=== PATIENT | male | born 1975 | race Two or more races ===

== ENCOUNTER 2025-05-17 09:34 | Emergency (ER) | payer OTHER, SELFPAY ==
[2025-05-17 09:38] VITALS: BP 113/62; PULSE 97; RESP 16; TEMP 36.7; O2SAT 97
[2025-05-17 11:24] VITALS: BMI 33.2
[2025-05-17] MEDS: LIDOCAINE HCL 1% 20 ML VIAL INFL (12:00)
--- NOTE | 2025-05-17 12:01 | PD.EDSKIN ---
ED Skin Abcess FB-RME/HPI General Chief complaint: Skin/Abscess/Foreign Body Stated complaint: cyst behind right ear, taking abx, getting worse Time Seen by Provider: 05/17/25 11:28 Arrival date/time: 05/17/25 09:34 Limitations: no limitations RME / HPI RME / HPI narrative: Patient is a 50-year-old male with a history of hypertension. He states he has reoccurring infections in his right auricle and posterior to the right ear. He states he was started on Bactrim DS last week for this and has 1 last day of on his prescription. He states his erythema, and swelling, has gotten worse. He denies any trauma or injury. He has no fevers or chills. He has no inner ear pain. No sore throat. No history of diabetes. He has no other acute complaints or concerns. Related Data Home Medications ?Medication ?Instructions ?Recorded ?Confirmed pantoprazole 40 mg tablet,delayed 40 mg PO QDAY ##0 01/10/14 release (Protonix) Losartan Potassium * (COZAAR *) 100 mg PO QDAY #0 tabs 09/17/16 baclofen 10 mg tablet 5 mg PO TID #0 tabs 09/17/16 famotidine 20 mg tablet (Pepcid) 20 mg PO HS #0 tabs 09/17/16 hydrochlorothiazide 12.5 mg 12.5 mg PO QAM #0 caps 09/17/16 capsule (Microzide) Previous Rx's ?Medication ?Instructions ?Recorded clindamycin HCl 300 mg capsule 300 mg PO QID #30 caps 05/17/25 Allergies Allergy/AdvReac Type Severity Reaction Status Date / Time Bee Stings Allergy Severe Swelling Uncoded 05/17/25 09:39 GNATS Allergy Severe Swelling Uncoded 05/17/25 09:39 ANTS Allergy Mild swelling, Uncoded 05/17/25 09:39 itching Review of Systems Review of Systems Systems Reviewed: All systems reviewed, normal except as documented ED Exam General Limitations: Present no limitations General appearance: Present alert and in no apparent distress Head Head exam: Present atraumatic Eye Eye exam: Present normal appearance, PERRL and EOMI ENT ENT exam: Present normal oropharynx, mucous membranes moist, TM's normal bilaterally (No ear canal edema or erythema) and other (The right pinna is erythematous and edematous. Just posterior to the ear there is mild fluctuance, and erythema.) Neck Neck exam: Present normal inspection, full ROM and trachea midline Chest Chest inspection: Present normal inspection and symmetric chest wall rise Respiratory Respiratory exam: Present normal lung sounds bilaterally Cardiovascular Cardiovascular exam: Present regular rate, normal rhythm and normal heart sounds Extremities Exam Extremities exam: Present normal inspection and full ROM Back Exam Back exam: Present normal inspection and full ROM Neurological Exam Neurological exam: Present alert and oriented X3 Psychiatric Psychiatric exam: Present normal affect and normal mood Skin Skin exam: Present warm, dry, intact and normal color Course Quality Measures none Orders Category Date Time Status Wound Cult and GS, Anaer Stat Lab 05/17/25 12:01 Ordered Lidocaine 1% 20 ml [Xylocaine 1% 20 ML] Med 05/17/25 11:51 Discontinued 20 ml INFL X1 ONE Vital Signs Vital signs: Vital Signs Temperature 98.1 F 05/17/25 09:38 Pulse Rate 97 05/17/25 09:38 Respiratory Rate 16 05/17/25 09:38 Blood Pressure 113/62 05/17/25 09:38 Pulse Oximetry (%) 97 05/17/25 09:38 Oxygen Delivery Method Room Air 05/17/25 09:38 PROCEDURES: Procedure Comment Verbal consent was obtained. The ear and posterior ear was cleansed with chlorhexidine. 0.25 cc of lidocaine was used to infiltrate the fluctuant area posterior to the ear an 18-gauge needle was then introduced into the area of fluctuance and approximately 0.3 cc of purulent drainage. Cultures were obtained. A dressing was then applied. Procedure was tolerated well without any immediate complication. Skin / Abscess / Foreign Body MDM Narrative MDM Narrative:: Patient is a 50-year-old male with a history of hypertension. He states he has reoccurring infections in his right auricle and posterior to the right ear. He states he was started on Bactrim DS last week for this and has 1 last day of on his prescription. He states his erythema, and swelling, has gotten worse. He denies any trauma or injury. He has no fevers or chills. He has no inner ear pain. No sore throat. No history of diabetes. He has no other acute complaints or concerns. On exam, patient is nontoxic-appearing in no visible signs stress. His right pinna is erythematous and there is mild fluctuance posterior to the ear. Verbal consent was obtained and the ear was aspirated, see procedure note. Cultures were obtained. Patient was placed on clindamycin. He states he also is followed by reverse unit operator fisherman for blackheads . He is advised to apply frequent warm compresses over the affected area. Start clindamycin as prescribed. Use Tylenol and Profen for comfort. He will contact his reverse unit operator fisherman to schedule close follow-up appointment. Return at anytime for any worsening or emergent changes. Patient data External records reviewed:: None Clinical information provided by:: patient Social determinants that could affect healthcare access:: none Patient has the following chronic illnesses:: Hypertension How is presenting disease/condition affected by chronic disease/condition?: no chronic disease Evaluation data The following diagnostics were reviewed and interpreted by me:: other (specify) (n/a) Lab and/or radiology exams considered but not ordered:: n/a Interpretation Summary: n/a Medications / Prescriptions Medications or Prescriptions considered but not ordered:: n/a Medication administrations:: Medication Administration History Discontinued Medications Lidocaine HCl (Lidocaine Hcl 1% 20 Ml Vial) 20 ml INFL X1 ONE Stop: 05/17/25 11:52 Last Admin: 05/17/25 12:00 Dose: 20 ml Documented By: REBECCA Comments: USED BY PROVIDER See above Consultations Consultation(s) initiated? (list below): No Diagnosis Skin/Abscess Differential Diagnosis: abscess of skin or subcutaneous tissue, urticaria, herpes zoster, cellulitis, eczema, impetigo and other (Infected sebaceous cyst, edematous lymph nodes) Most likely diagnosis given after review of the tests above:: Cellulitis and abscess Admission Indicated Admission indicated?: not indicated Admission Request Was there a request for admission?: No Disposition Plan Disposition Plan: Discharge Discharge Attestation Discharge Attestation: The patient and all family members were given an opportunity to ask questions and understood the discharge instructions. Discharge instructions specifically effects, indications for sooner follow up or return to the emergency department, and the expected course of current diagnosis. Patient condition: Stable Discharge Plan Plan Patient Disposition: HOME (Self Care) Patient condition on transfer: Stable Prescriptions/Referrals Prescriptions/Med Rec: New clindamycin HCl 300 mg capsule 300 mg PO QID Qty: 30 0RF No Action pantoprazole [Protonix] 40 MG tablet,delayed release (DR/EC) 40 mg PO QDAY Qty: 0 Patient Comments: TO SUPPRESS GASTRIC SECRETIONS famotidine [Pepcid] 20 MG tablet 20 mg PO HS Qty: 0 Patient Comments: TO SUPPRESS GASTRIC ACID SECRETION baclofen 10 MG tablet 5 mg PO TID Qty: 0 hydrochlorothiazide [Microzide] 12.5 MG capsule 12.5 mg PO QAM Qty: 0 Losartan Potassium * (COZAAR *) 100 MG tablet 100 mg PO QDAY Qty: 0 Referrals: Sherry Jurado PA-C [Primary Care Provider] - In 1 week Problem List Clinical Impression: Abscess Patient/Caregiver Discharge Instructions Education Materials: Abscess Drainage Additional Instructions: - Apply frequent warm compresses. - A prescription for clindamycin has been sent to your pharmacy, please take this every 6 hours with food. This may also cause GI upset. - Contact your reverse unit operator fisherman to schedule close follow-up appointment. - Please return to the emergency room anytime for any worsening or emergent changes. Print Language: Egyptian Stand Alone Forms: [employer] Award Info., Patient Portal Info Letter
== END 2025-05-17 12:41 | disposition home or self-care (01) ==
PROVIDERS: Emergency Provider Emergency Medicine
DX: H60.01 Abscess of right external ear (principal)
CPT/HCPCS: 87070; 87075; 87205; 99283; J3490